=== PATIENT | male | born 1975 | race Caucasian/White ===

== ENCOUNTER 2017-12-05 02:39 | Emergency (ER) | payer SELFPAY ==
[2017-12-05] MEDS ORDERED: KETOROLAC 15 MG/1 ML SDV IVP ONE (03:09)
[2017-12-05] MEDS ORDERED: NS 1,000 ML IV ONE (03:09)
[2017-12-05] MEDS ORDERED: LIDOCAINE 1% 200 MG in NS 100 ML IV ONE (03:09)
[2017-12-05 03:20] LABS: PLATELET COUNT 235 10^3/uL (150-400)
[2017-12-05] MEDS: NS 1,000 ML IV ONE ×2 (03:26→03:27)
[2017-12-05] MEDS ORDERED: HYDROmorphONE/DILAUDID 1 MG/ML INJ IVP ONE ×2 (03:40→04:35)
[2017-12-05] MEDS ORDERED: HYDROmorphONE/DILAUDID 1 MG/ML INJ ONE (03:40)
--- NOTE | 2017-12-05 03:40 | EDPHY ---
H & P Stated Complaint: c/o R lower back pain radiating into R flank x 3-4 hrs Time Seen by Provider: 12/05/17 02:51 HPI/ROS: HPI The patient presents with right-sided flank pain which began at about 11:00 p.m. tonight while he was at work. The pain came on fairly suddenly, feels like a back spasm, radiates to his right lower quadrant. It has been constant since it began. He says he has had some difficulty urinating with groin pain over the last 1-2 days. He denies any nausea or vomiting. He does not have any fever. He has no prior history of similar pain. He denies any tj hematuria.. REVIEW OF SYSTEMS Constitutional: No fever, no chills. Eyes: No discharge. ENT: No sore throat. Cardiovascular: No chest pain, no palpitations. Respiratory: No cough, no shortness of breath. Gastrointestinal: No abdominal pain, no vomiting. Genitourinary: No hematuria. Musculoskeletal: Right-sided flank pain Skin: No rashes. Neurological: No headache. 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 PHYSICAL General Appearance: Alert, no distress Eyes: Pupils equal and round no pallor or injection ENT, Mouth: Mucous membranes moist Respiratory: There are no retractions, lungs are clear to auscultation Cardiovascular: Regular rate and rhythm Gastrointestinal: Abdomen is soft and non-tender, no masses, bowel sounds normal Back: There is right-sided flank tenderness to palpation Neurological: A&O, moves all extremities Skin: Warm and dry, no rashes Musculoskeletal: Neck is supple non tender Extremities: symmetrical, full range of motion Psychiatric: Patient is oriented X 3, there is no agitation Source: Patient Exam Limitations: No limitations - Medical/Surgical History Hx Asthma: No Hx Chronic Respiratory Disease: No Hx Diabetes: No Hx Cardiac Disease: No Hx Renal Disease: No Hx Cirrhosis: No Hx Alcoholism: No Hx HIV/AIDS: No Hx Splenectomy or Spleen Trauma: No Other PMH: none - Social History Smoking Status: Current every day smoker Constitutional: Initial Vital Signs Heart Rate 55 L 12/05/17 02:44 Respiratory Rate 18 12/05/17 02:44 Blood Pressure 116/104 H 12/05/17 02:44 O2 Sat (%) 96 12/05/17 02:44 O2 Delivery Mode Room Air Allergies/Adverse Reactions: mushroom Allergy (Verified 12/05/17 02:47) Home Medications: Medication Instructions Recorded Hydrocodone/APAP 5/325 [Lawtey 1 - 2 tab PO Q6H PRN #15 tab 12/05/17 5/325 (*)] Tamsulosin HCl [Flomax 0.4 MG (*)] 0.4 mg PO DAILY #10 cap 12/05/17 Medical Decision Making - Diagnostics Imaging Results: CT abdomen pelvis without IV contrast demonstrates right-sided 4 mm distal ureteral kidney stone with hydronephrosis. Discussed with Dr. Ravi of Radiology. Imaging: Discussed imaging studies w/ hris administrator Radiologist, I viewed and interpreted images myself Differential Diagnosis: 42-year-old male presents with several hours of right-sided flank tenderness and pain. On exam, well-appearing, normal vital signs, though with right-sided flank tenderness. Differential diagnosis includes ureterolithiasis, pyelonephritis, less likely AAA. In the emergency department, patient received IV fluids, Toradol, Dilaudid, lidocaine with improvement in his symptoms. He required a 2nd dose of Dilaudid for repeat bout of pain. Labs checked and did reveal hematuria. CT scan demonstrated obstructive right- sided uropathy. Patient felt well enough to go home. He was given medications for discharge may Urology follow-up, instruction to drink plenty of fluids. - Data Points Laboratory Results: Laboratory Results 12/05/17 03:05 12/05/17 03:05 12/05/17 12/05/17 12/05/17 03:05 03:05 02:43 WBC 9.70 10^3/uL H 10^3/uL (3.80-9.50) RBC 5.29 10^6/uL 10^6/uL (4.40-6.38) Hgb 17.5 g/dL g/dL (13.7-17.5) Hct 47.1 % % (40.0-51.0) MCV 89.0 fL fL (81.5-99.8) MCH 33.1 pg pg (27.9-34.1) MCHC 37.2 g/dL H g/dL (32.4-36.7) RDW 13.3 % % (11.5-15.2) Plt Count 235 10^3/uL 10^3/uL (150-400) MPV 9.8 fL fL (8.7-11.7) Neut % (Auto) 85.2 % H % (39.3-74.2) Lymph % (Auto) 8.0 % L % (15.0-45.0) Elliott % (Auto) 5.1 % % (4.5-13.0) Eos % (Auto) 0.8 % % (0.6-7.6) Baso % (Auto) 0.5 % % (0.3-1.7) Nucleat RBC Rel Count 0.0 % % (0.0-0.2) Absolute Neuts (auto) 8.26 10^3/uL H 10^3/uL (1.70-6.50) Absolute Lymphs (auto) 0.78 10^3/uL L 10^3/uL (1.00-3.00) Absolute Monos (auto) 0.49 10^3/uL 10^3/uL (0.30-0.80) Absolute Eos (auto) 0.08 10^3/uL 10^3/uL (0.03-0.40) Absolute Basos (auto) 0.05 10^3/uL 10^3/uL (0.02-0.10) Absolute Nucleated RBC 0.00 10^3/uL 10^3/uL (0-0.01) Immature Gran % 0.4 % % (0.0-1.1) Immature Gran # 0.04 10^3/uL 10^3/uL (0.00-0.10) Sodium 143 mEq/L mEq/L (135-145) Potassium 4.1 mEq/L mEq/L (3.5-5.2) Chloride 109 mEq/L mEq/L (97-110) Carbon Dioxide 21 mEq/l L mEq/l (22-31) Anion Gap 13 mEq/L mEq/L (8-16) BUN 14 mg/dL mg/dL (7-23) Creatinine 1.3 mg/dL mg/dL (0.7-1.3) Estimated GFR > 60 Glucose 124 mg/dL H mg/dL (70-100) Calcium 9.6 mg/dL mg/dL (8.5-10.4) Urine Color YELLOW Urine Appearance HAZY Urine pH 5.0 (5.0-7.5) Ur Specific [place] 1.032 H (1.002-1.030) Urine Protein 1+ H (NEGATIVE) Urine Ketones NEGATIVE (NEGATIVE) Urine Blood 1+ H (NEGATIVE) Urine Nitrate NEGATIVE (NEGATIVE) Urine Bilirubin NEGATIVE (NEGATIVE) Urine Urobilinogen 2.0 EU H EU (0.2-1.0) Ur Leukocyte Esterase NEGATIVE (NEGATIVE) Urine RBC 25-50 /hpf H /hpf (0-3) Urine WBC 1-3 /hpf /hpf (0-3) Ur Epithelial Cells Not Reported Calcium Oxalate Crystal PRESENT /hpf /hpf (NONE-1+) Urine Bacteria TRACE /hpf H /hpf (NONE SEEN) Granular Casts 1-5 /lpf /lpf (0-1) Urine Mucus 1+ /lpf /lpf (NONE-1+) Urine Glucose NEGATIVE (NEGATIVE) Medications Given: Discontinued Medications Acetaminophen (Tylenol) 1,000 mg PO EDNOW ONE Stop: 12/05/17 04:35 Last Admin: 12/05/17 04:45 Dose: 1,000 mg Hydrocodone Bitart/Acetaminophen (Lawtey 5/325mg Prepack#6) 1 btl TAKEHOME EDNOW ONE Stop: 12/05/17 05:40 Last Admin: 12/05/17 05:45 Dose: 1 btl Hydromorphone HCl (Dilaudid) 0.5 mg IVP EDNOW ONE Stop: 12/05/17 03:41 Last Admin: 12/05/17 03:46 Dose: 0.5 mg Hydromorphone HCl (Dilaudid) 0.5 mg IVP EDNOW ONE Stop: 12/05/17 04:36 Last Admin: 12/05/17 04:44 Dose: 0.5 mg Sodium Chloride (Ns) 1,000 mls @ 0 mls/hr IV ONCE ONE; Wide Open PRN Reason: Protocol Stop: 12/05/17 03:10 Last Admin: 12/05/17 03:46 Dose: 1,000 mls Lidocaine HCl 200 mg/ Sodium (Chloride) 120 mls @ 600 mls/hr IV EDNOW ONE Stop: 12/05/17 03:20 Last Admin: 12/05/17 04:07 Dose: 120 mls Sodium Chloride (Ns) 1,000 mls @ 3,000 mls/hr IV EDNOW ONE Stop: 12/05/17 03:28 Last Admin: 12/05/17 03:26 Dose: 1,000 mls Ketorolac Tromethamine (Toradol) 15 mg IVP EDNOW ONE Stop: 12/05/17 03:10 Last Admin: 12/05/17 03:27 Dose: 15 mg Departure - Departure Disposition: Home, Routine, Self-Care Clinical Impression: Ureterolithiasis, Right flank pain Condition: Good Instructions: Hydrocodone/Acetaminophen (By mouth), Kidney Stones (ED), How to Strain Your Urine (ED) Additional Instructions: 1. Take Ibuprofen or Motrin 600 mg by mouth three times a day. 2. Lawtey as needed for severe pain 3. Flomax as directed 4. Zofran as needed for nausea 5. Strain urine as directed 6. Return to the Emergency Department for intractable pain, fever or vomiting. 7. Followup with the urologist you have been referred to for unimproved symptoms. Referrals: Raul Hanna MD [Medical Doctor] - As per Instructions Stand Alone Forms: Work Excuse Prescriptions: Hydrocodone/APAP 5/325 [Lawtey 5/325 (*)] 1 - 2 tab PO Q6H PRN #15 tab PRN Reason: Pain, Breakthrough Tamsulosin HCl [Flomax 0.4 MG (*)] 0.4 mg PO DAILY #10 cap
[2017-12-05] MEDS ORDERED: ACETAMINOPHEN 500 MG TAB PO ONE (04:34)
[2017-12-05 05:17] VITALS: BP 139/84; PULSE 82; RESP 16; O2SAT 97
[2017-12-05] MEDS ORDERED: HYDROCOD/APAP 5/325 PREPACK#6 BTL TAKEHOME ONE (05:39)
[2017-12-05 05:44] VITALS: TEMP 97.7
== END 2017-12-05 05:54 | disposition home or self-care (01) ==
DX: N20.1 Calculus of ureter (principal); E86.9 Volume depletion, unspecified; F17.200 Nicotine dependence, unspecified, uncomplicated
CPT/HCPCS: 96374; J1170; J1885